=== PATIENT | female | born 1945 | race Caucasian/White ===

== ENCOUNTER 2023-07-29 08:14 | Inpatient (IN) | payer MEDICARE, OTHER, SELFPAY ==
[2023-07-29] VITALS (16 sets, daily range): BP systolic 91–144; BP diastolic 54–75; BMI 25.3
[2023-07-29] MEDS: TYLENOL 1000 MG PO (08:13)
[2023-07-29] MEDS: NEURONTIN 300 MG PO (08:13)
[2023-07-29] MEDS: NORMOSOL-R 1000 IV (08:14)
[2023-07-29] MEDS: HEPARIN SC (08:48)
[2023-07-29] MEDS: HEPARIN 5000 UNITS SC ×2 (09:38→20:28)
--- NOTE | 2023-07-29 12:29 | W.IMMPOSTOP ---
Surgical Immed Post Op Note
-
Primary Surgeon: Jesús Valentine MD
Assisting Surgeon: Denise Allen
Pre-op Diagnosis: RLL lung cancer
Post-op Diagnosis: RLL lung cancer
Procedure Performed: Minimally invasive RLL superior segment resection and mediastinal lymph node dissection
Anesthesia Type: General
Specimen / Cultures: RLL superior segment and mediastinal lymph nodes
Estimated Blood Loss: 3 cc
Complications: None
Operative Findings: Right lower lobe lung tumor
[2023-07-29] MEDS: D5/0.45%NSS with KCL 20 MEQ 1000 IV (12:56)
--- NOTE | 2023-07-29 13:13 | SUR.PHASEI ---
Repoert from Shawna Dixon, dozing lightly in bed with HOb elevated mid fowlers, R chest tube intact 2cm water seal no air leak noted, no crepitus felt R side chest to hip, denies c/o, vss
--- NOTE | 2023-07-29 13:17 | SUR.PHASEI ---
Lightly dozing, arouses easily
--- NOTE | 2023-07-29 13:32 | SUR.PHASEI ---
Arouses easily, mouth care given evita well, denies c/o States 'I just feel so sleepy' reassured, encouraged to rest
[2023-07-29] MEDS: TYLENOL 650 MG PO ×2 (16:08→20:28)
[2023-07-29] MEDS: NEURONTIN 100 MG PO ×2 (16:08→20:29)
--- NOTE | 2023-07-29 16:27 | PTCARENOTE ---
Pt received from PACU s/p RLL resection w lymph node dissection. AAOx3. 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 HR 70s. SaO2 94% on room air. VSS. R Chest tube to water seal. No air leak noted. Dressing CDI. Pt complains of mild discomfort with inspiration at chest
tube site. See MAR for pain med administration. Pt resting in bed, call wood within reach.
[2023-07-29] MEDS: MORPHINE SULFATE 2 MG IV ×2 (16:52→20:28)
[2023-07-29] MEDS: ANTIVERT 12.5 MG PO (17:55)
[2023-07-29] MEDS: COLACE 100 MG PO (20:29)
[2023-07-30] VITALS (18 sets, daily range): BP systolic 97–124; BP diastolic 59–90; PULSE 74–75; O2SAT 97
[2023-07-30] MEDS: TYLENOL PO ×2 (00:08→04:26)
[2023-07-30] MEDS: D5/0.45%NSS with KCL 20 MEQ 1000 IV (02:15)
--- NOTE | 2023-07-30 03:39 | DOWNTIME ---
There was a [employer] Client Flight Service Agent Downtime on 07/30/2023 from 0100 to 07/30/2023 at 0337. Downtime documentation of patient's care, including medication administrations, has been reconciled in the electronic record per guidelines. Refer to the
patient's paper chart under the miscellaneous tab to see printed paper medication records and downtime forms.
[2023-07-30 05:25] LABS: Hematocrit 37.6 % (37.0-47.0); Hemoglobin 12.7 g/dL (12.0-16.0); Mean Corp Hgb Conc. 33.8 g/dL (33.0-37.0); Mean Corpuscular Hgb 31.3 pg (27.0-31.0); Mean Corpuscular Volume 92.6 fL (81.0-99.0); Mean Platelet Volume 12.3 fL (7.4-10.4); Platelet Count 160 10^3/uL (130-400); Red Blood Cell Count 4.06 10^6/uL (4.20-5.40); White Blood Cell Count 27.5 10^3/uL (4.8-10.8)
[2023-07-30 05:46] LABS: Blood Urea Nitrogen 14 mg/dl (7-17); Calcium 9.1 mg/dl (8.4-10.2); Carbon Dioxide 25 mmol/L (22-30); Chloride 101 mmol/L (98-107); Estimated Creatinine Clearance 44 ml/min; Glucose 126 mg/dl (70-99); Potassium 5.7 mmol/L (3.5-5.1); Sodium 133 mmol/L (135-145); eGFR > 60.00
--- NOTE | 2023-07-30 06:31 | W.PN.UPDATE ---
Update Note
Progress Note Update
K 5.7, will d/c IV fluids, will order Lokelma 10mgx1.
[2023-07-30] MEDS: LOKELMA 10 GRAM PO (08:30)
[2023-07-30] MEDS: TYLENOL 650 MG PO ×4 (08:30→19:28)
[2023-07-30] MEDS: VITAMIN C 1000 MG PO (08:30)
[2023-07-30] MEDS: HEPARIN 5000 UNITS SC ×2 (08:31→19:28)
[2023-07-30] MEDS: OSCAL CAL 500 1000 MG PO (08:31)
[2023-07-30] MEDS: ANTIVERT 12.5 MG PO (08:31)
[2023-07-30] MEDS: COLACE 100 MG PO ×2 (08:31→19:28)
[2023-07-30] MEDS: NEURONTIN PO (08:31)
[2023-07-30] MEDS: ROXICODONE 5 MG PO ×2 (08:34→16:10)
--- NOTE | 2023-07-30 09:23 | PTCARENOTE ---
Per therapist, medication found on floor in room, identified by Pharmacist as Gabapentin 100 mg, new dose ordered.
[2023-07-30] MEDS: NEURONTIN 100 MG PO ×3 (09:41→19:28)
--- NOTE | 2023-07-30 12:42 | PTCARENOTE ---
Pt remains seated out in chair, VSS, meds as documented. Pain level is tolerable -located at chest tube site. Minimal red drainage noted in chamber. Chest tube remains to water seal, dressing CDI. Pt is tolerating regular diet with no issues. Will
discuss plan with Dr. Valentine upon rounds, pt with no needs at this time. Call wood in reach, will continue to monitor.
--- NOTE | 2023-07-30 17:48 | CM ---
Patient with Dx RLL Lung CA who is s/p RLL superior segment resection and mediastinal lymph node dissection. Chest tube. Per nurse assessment; ambulating in halls.
Met with patient who resides alone in a 2 story house with 3 FREDDY.
The patient has been independent in ADLs and ambulation.
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
No prior VN or SNF.
PCP - Antonio Manrique
Pharmacy - [facility] [address], [place]
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
Emotional support provided. 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
The patient has no children. She says she has a few friends & neighbors.
The patient has lined up transport home with [facility] (they were the caregiver agency for her ).
Offered VN and patient declined.
CM continuing to follow.
Plan home.
--- NOTE | 2023-07-30 17:54 | W.PN.GENERIC ---
Assessment / Plan
-
S/p right lower lung cancer resection POD #1
Stable
If CXR remains stable tomorrow, we will plan to dc. Continue CT to H2O seal
Elevated K+, noted. Will repeat CMP
OOB and ambulate. Encourage pulmonary toilet
Await path
Physician Progress Note
Subjective
C/o incisional pain, macie when taking deep breath
Objective
Vital Signs
Temp Pulse Resp BP Pulse Ox
97.9 F 73 21 112/59 97
07/30/23 11:45 07/30/23 16:00 07/30/23 16:00 07/30/23 16:00 07/30/23 14:00
Lab Results
07/30/23 04:56
07/30/23 04:56
Chest - dec bilaterally
Cor - RRR
Chest tube without airleak and min output. On H20 seal
--- NOTE | 2023-07-30 23:07 | PTCARENOTE ---
Caring for pt overnight. aaox3. NSR, remains RA. lungs clear, diminished in R base. CT to water seal, minimal to no drainage. Dressing CDI, no issues. Will continue to monitor.
[2023-07-31] VITALS (14 sets, daily range): BP systolic 98–124; BP diastolic 61–73; PULSE 85; O2SAT 97
[2023-07-31] MEDS: TYLENOL 650 MG PO ×6 (00:16→19:52)
[2023-07-31 05:07] LABS: Hematocrit 37.3 % (37.0-47.0); Hemoglobin 12.2 g/dL (12.0-16.0); Mean Corp Hgb Conc. 32.7 g/dL (33.0-37.0); Mean Corpuscular Hgb 31.3 pg (27.0-31.0); Mean Corpuscular Volume 95.6 fL (81.0-99.0); Mean Platelet Volume 12.6 fL (7.4-10.4); Platelet Count 142 10^3/uL (130-400); Red Cell Dist. Width 13.2 % (11.5-14.5); White Blood Cell Count 27.3 10^3/uL (4.8-10.8)
[2023-07-31 05:32] LABS: ALT (SGPT) 178 U/L (0-35); AST (SGOT) 261 U/L (14-36); Albumin 3.7 g/dl (3.5-5.0); Alkaline Phosphatase 99 U/L (38-126); Blood Urea Nitrogen 20 mg/dl (7-17); Calcium 9.4 mg/dl (8.4-10.2); Carbon Dioxide 25 mmol/L (22-30); Chloride 104 mmol/L (98-107); Estimated Creatinine Clearance 44 ml/min; Glucose 107 mg/dl (70-99); Potassium 4.4 mmol/L (3.5-5.1); Sodium 136 mmol/L (135-145); Total Bilirubin 0.9 mg/dl (0.2-1.3); eGFR > 60.00
[2023-07-31] MEDS: ROXICODONE 5 MG PO (08:51)
[2023-07-31] MEDS: COLACE 100 MG PO ×2 (08:52→19:52)
[2023-07-31] MEDS: OSCAL CAL 500 1000 MG PO (08:52)
[2023-07-31] MEDS: VITAMIN C 1000 MG PO (08:52)
[2023-07-31] MEDS: HEPARIN 5000 UNITS SC ×2 (08:52→19:52)
[2023-07-31] MEDS: NEURONTIN 100 MG PO (08:52)
--- NOTE | 2023-07-31 11:05 | PN.CDI ---
CDI
- -
CDI:
Physician Documentation Request
Admit Date: 07/29/23 08:14
Dear Doctor Serge,
Please review the following and provide your response in the progress notes.
Clinical Indicators:
PN, 07/29
#K 5.7, will d/c IV fluids, will order Lokelma 10mgx1.
Laboratory Tests
07/30/23 07/31/23
04:56 04:28
Potassium 5.7 H 4.4
Based on the above, please clarify in the progress notes, the appropriate diagnosis, if significant, that supports the above abnormalities and additional evaluation, monitoring and/or treatment rendered:
Hyperkalemia
Abnormal lab value, clinically insignificant
Other(please specify)
Use of terms such as suspected, likely, concern for, or probable (associated with a specific diagnosis that is being evaluated, monitored, or treated as if it exists) are acceptable and can be coded in the inpatient setting, when documented at the
time of discharge.
Thank you,
Sofia Gordon RN BSN CCDS
CDI Specialist
please contact via tiger text
Please use your independent medical judgment in providing your response.
--- NOTE | 2023-07-31 13:33 | PTCARENOTE ---
Pt's chest tube removed by Dr. Valentine, he stated there may be drainage from chest tube site which is to be expected. Pt ambulating independently in aviles, she did notice drainage from site, dressing taken down and replaced, mod amount serosang liquid
drainage noted. Sats maintained in high 90s on room air, pt resumed ambulating after dressing change. CXR ordered for 2 hours post chest tube removal, then pt to be transfered to [address] [place] [address] if stable.
--- NOTE | 2023-07-31 16:02 | W.PN.GENERIC ---
Assessment / Plan
-
s/p RLL lung cancer resection POD #2
Stable
chest tube removed. Post CXR stable
Her high potassium from yesterday is most likely due to lab error. Today's potassium normal without any intervention
Tsf pt to the surgical floor (2S)
Encourage pulmonary toilet
OOB and ambulate
Physician Progress Note
Subjective
Feeling better but still with some incisional pain
Objective
Vital Signs
Temp Pulse Resp BP Pulse Ox
98.2 F 85 22 118/67 97
07/31/23 11:50 07/31/23 14:51 07/31/23 14:51 07/31/23 14:51 07/31/23 14:51
Lab Results
07/31/23 04:28
07/31/23 04:28
Lungs - CTA
COr- RR
Incision - CDI
[2023-07-31] MEDS: NEURONTIN PO (16:22)
--- NOTE | 2023-07-31 17:04 | PTCARENOTE ---
Pt remains stable, Dr. Valentine placed med surg ([address] [place] [address]) orders after CXR. Pt updated and verbalized understanding, appreciative of care.
--- NOTE | 2023-07-31 17:26 | PTCARENOTE ---
Pt's right wrist #16 PIV removed at her request.
[2023-08-01] MEDS: TYLENOL PO (01:41)
[2023-08-01] MEDS: TYLENOL 650 MG PO ×2 (03:53→08:48)
--- NOTE | 2023-08-01 07:12 | PTCARENOTE ---
Cared for pt overnight. aaox3, pleasant. Slight pain at incision site, tylenol given. Pt self in room, ambulating fine. Lungs clear. Dressing CDI. Pt c/o constipation, colace given. Will monitor.
[2023-08-01 07:24] VITALS: BP 123/72
[2023-08-01 07:51] VITALS: BP 123/72
[2023-08-01] MEDS: VITAMIN C 1000 MG PO (08:48)
[2023-08-01] MEDS: OSCAL CAL 500 1000 MG PO (08:48)
[2023-08-01] MEDS: COLACE 100 MG PO (08:48)
[2023-08-01] MEDS: HEPARIN 5000 UNITS SC (08:49)
--- NOTE | 2023-08-01 09:16 | W.DS.TRANS ---
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
-
Discharge Instructions:
Sleep Apnea Risk Low
Discharge Diagnosis/Procedures Stage I Right lower lobe lung cancer
Diet As tolerated,Regular
Activity No strenuous activity,As tolerated
Driving Restrictions Not until seen by your Dr
Bathing Restrictions OK to Shower
Instructions:
Stand-Alone Forms:
Changes to Home Medications: No
Discharge Medications:
DC Medications w/original date entered in [facility]
ascorbic acid (vitamin C) 1,000 mg tablet (Vitamin C) 1,000 mg PO DAILY 07/24/23
calcium carbonate 1,000 mg PO DAILY 07/24/23
cranberry extract 650 mg capsule 650 mg PO DAILY 07/24/23
eletriptan 40 mg tablet (Relpax) 40 mg PO PRN PRN Migraine 07/24/23
loratadine 10 mg tablet (Claritin) 10 mg PO PRN PRN allergy 07/24/23
meclizine 12.5 mg tablet 12.5 mg PO PRN PRN positional vertigo 07/24/23
Home Medication Changes
Pending Results: No
--- NOTE | 2023-08-01 11:01 | CM ---
met with patient who is stable for dc home with no needs.[facility]patient signed medicare letter.
--- NOTE | 2023-08-01 12:02 | PTCARENOTE ---
No BM since day of surgery- pt refuses med intervention prior to dc- has Miralax and Dulcolax at home and will start regimen today.
== END 2023-08-01 12:18 | disposition home or self-care (01) | DRG 164 ==
LOC: IMU 08:14
PROVIDERS: ADMITTING PHYSICIAN Surgery; FAMILY PHYSICIAN Internal Medicine
PROC: 07B70ZZ Excision of Thorax Lymphatic, Open Approach (ICD-10-PCS; 2023-07-29)
PROC: 0BBF0ZZ Excision of Right Lower Lung Lobe, Open Approach (ICD-10-PCS; 2023-07-29)
DX: C34.31 Malignant neoplasm of lower lobe, right bronchus or lung (principal); J93.9 Pneumothorax, unspecified; N18.31 Chronic kidney disease, stage 3a; Z85.6 Personal history of leukemia
CPT/HCPCS: 88305; 88307; 71045; 80048; 80053; 85027; 86850; 86900; 86901; 97116; 97162; 97166; A4648